=== PATIENT | female | born 1975 | race American Indian/Alaskan Native ===

== ENCOUNTER 2022-02-02 15:19 | Emergency (ER) | payer SELFPAY ==
--- NOTE | 2022-02-02 18:19 | XRay Report ---
CHEST 2 VIEWS INDICATION / CLINICAL INFORMATION: Shortness of breath for 2 days. Painful lump on right clavicle. COMPARISON: None available. FINDINGS: SUPPORT DEVICES: None. HEART / MEDIASTINUM: The heart size and pulmonary vasculature are normal. LUNGS / PLEURA: No significant pulmonary or pleural abnormality. No pneumothorax. ADDITIONAL FINDINGS: No osseous abnormality is seen. IMPRESSION: No acute findings. Signer Name: Juanpablo Das MD Signed: 02/02/2022 6:15 PM Workstation Name: [id number]
[2022-02-02 18:21] LABS: Basophils # (Auto) 0.1 K/mm3 (0.0-0.1); Basophils % (Auto) 1.2 % (0.0-1.8); Eosinophils # (Auto) 0.1 K/mm3 (0.0-0.4); Eosinophils % (Auto) 1.9 % (0.0-4.3); Lymphocytes # (Auto) 1.9 K/mm3 (1.2-5.4); Lymphocytes % (Auto) 27.9 % (13.4-35.0); Mean Corpuscular HGB Conc 32 % (30-34); Mean Corpuscular Volume 84 fl (79-97); Monocytes # (Auto) 0.5 K/mm3 (0.0-0.8); Monocytes % (Auto) 6.7 % (0.0-7.3); Platelet Count 214 K/mm3 (140-440); Red Blood Count 4.53 M/mm3 (3.65-5.03); Red Cell Distribution Width 18.2 % (13.2-15.2)
[2022-02-02 18:26] LABS: Alanine Aminotransferase 19 units/L (7-56); Albumin 3.9 g/dL (3.9-5); Blood Urea Nitrogen 14 mg/dL (7-17); Calcium 8.9 mg/dL (8.4-10.2); Hemolysis Index 8
[2022-02-02 18:31] LABS: BUN/Creatinine Ratio 20
[2022-02-02] MEDS ORDERED: dexAMETHasone 20 MG/5 ML VIAL IM ONE (21:14)
[2022-02-02] MEDS ORDERED: KETOROLAC 30 MG/1 ML INJ IM ONE (21:14)
--- NOTE | 2022-02-02 22:13 | XRay Report ---
RIGHT CLAVICLE 2 VIEWS INDICATION / CLINICAL INFORMATION: Pain and swelling along right clavicle. COMPARISON: None available. FINDINGS: BONES and JOINT(S): No acute fracture or subluxation. No significant arthritis. SOFT TISSUES: No significant abnormality. ADDITIONAL FINDINGS: None. IMPRESSION: 1. No acute findings. Signer Name: Pa Tmaayo MD Signed: 02/02/2022 10:09 PM Workstation Name: [id number]
--- NOTE | 2022-02-02 22:36 | Emergency Department Report ---
ED General Adult HPI - General Chief complaint: Dyspnea/Respdistress Stated complaint: UPPER NECK/CHEST PAIN Source: patient Mode of arrival: Ambulatory Limitations: No Limitations - History of Present Illness Initial comments: Patient is a 46-year-old -British female with no past medical history presents to the ED with complaint of acute onset persistent nontraumatic medial right clavicle pain and swelling at the sternoclavicular joint for the last 2 days, worse in the last 12 hours. Patient states the pain is worse with movement, palpation or deep inhalation. Patient denies dizziness, syncope, traumatic injury, heavy lifting, fall, neck pain, cough, sore throat, dysphagia or dysphonia, numbness and tingling or weakness of upper extremities bilaterally, fever and chills. MD Complaint: Medial right clavicle pain and swelling -: Sudden, days(s) (3) Location: chest (medial right clavicle pain) Radiation: non-radiation Severity scale (0 -10): 7 Quality: aching, sharp Consistency: constant Improves with: none Worsens with: none Associated Symptoms: denies other symptoms, chest pain (medial right clavicle pa in and swelling). denies: confusion, cough, diaphoresis, fever/chills, headaches, loss of appetite, malaise, nausea/vomiting, rash, seizure, shortness of breath, syncope, weakness, other Treatments Prior to Arrival: none - Related Data Previous Rx's Medication Instructions Recorded Last Taken Type Naproxen 500 mg PO Q12H PRN #30 tab 02/02/22 Unknown Rx predniSONE [Deltasone] 40 mg PO QDAY #10 tab 02/02/22 Unknown Rx Allergies Allergy/AdvReac Type Severity Reaction Status Date / Time No Known Allergies Allergy Unverified 02/02/22 17:22 ED Review of Systems ROS: Stated complaint: UPPER NECK/CHEST PAIN Other details as noted in HPI Constitutional: denies: chills, fever Eyes: denies: eye pain, eye discharge, vision change ENT: denies: ear pain, throat pain Respiratory: denies: cough, shortness of breath, wheezing Cardiovascular: denies: chest pain, palpitations Endocrine: no symptoms reported Gastrointestinal: denies: abdominal pain, nausea, vomiting, diarrhea Genitourinary: denies: urgency, dysuria, discharge Musculoskeletal: joint swelling (Medial right clavicle pain and swelling), arthralgia (Medial right clavicle pain with mild swelling). denies: back pain Skin: denies: rash, lesions Neurological: denies: headache, weakness, paresthesias Psychiatric: denies: anxiety, depression Hematological/Lymphatic: denies: easy bleeding, easy bruising ED Past Medical Hx - Past Medical History Previous Medical History?: No Additional medical history: neto syndrome - Surgical History Past Surgical History?: No - Social History Smoking Status: Never Smoker - Medications Home Medications: Home Medications Medication Instructions Recorded Confirmed Last Taken Type Naproxen 500 mg PO Q12H PRN #30 tab 02/02/22 Unknown Rx predniSONE [Deltasone] 40 mg PO QDAY #10 tab 02/02/22 Unknown Rx ED Physical Exam - General Limitations: No Limitations General appearance: alert, in no apparent distress - Head Head exam: Present: atraumatic, normocephalic, normal inspection - Eye Eye exam: Present: normal appearance, PERRL, EOMI Pupils: Present: normal accommodation - ENT ENT exam: Present: normal exam, normal orophraynx, mucous membranes moist, TM's normal bilaterally, normal external ear exam - Neck Neck exam: Present: normal inspection, full ROM. Absent: tenderness - Respiratory Respiratory exam: Present: normal lung sounds bilaterally, chest wall tenderness (Palpable reproducible medial right clavicle tenderness with mild swelling at the sternoclavicular joint). Absent: respiratory distress, wheezes, rales, rhonchi, accessory muscle use, decreased breath sounds, other - Cardiovascular Cardiovascular Exam: Present: regular rate, normal rhythm, normal heart sounds. Absent: systolic murmur, diastolic murmur, rubs, gallop - GI/Abdominal GI/Abdominal exam: Present: soft, normal bowel sounds. Absent: tenderness, guarding, rebound, hyperactive bowel sounds, hypoactive bowel sounds, organomegaly - Extremities Exam Extremities exam: Present: normal inspection, full ROM, normal capillary refill. Absent: tenderness - Back Exam Back exam: Present: normal inspection, full ROM. Absent: tenderness, CVA tenderness (R), CVA tenderness (L), muscle spasm - Neurological Exam Neurological exam: Present: alert, oriented X3, CN II-XII intact, normal gait, reflexes normal - Psychiatric Psychiatric exam: Present: normal affect, normal mood - Skin Skin exam: Present: warm, dry, intact, normal color. Absent: rash ED Course Vital Signs 02/02/22 17:17 Temperature 98.9 F Pulse Rate 87 Respiratory 18 Rate Blood Pressure 129/91 O2 Sat by Pulse 99 Oximetry ED Medical Decision Making - Lab Data Result diagrams: 02/02/22 17:44 02/02/22 17:44 - Radiology Data Radiology results: report reviewed, image reviewed [facility] [address] [place] [address] XRay Report Signed Patient: ERICA GUERRERO MR#: [id number] : 1975 Acct:[id number] Age/Sex: 46 / F ADM Date: 02/02/22 Loc: ED Attending Dr: Ordering Physician: ED MD ANEUDY Date of Service: 02/02/22 Procedure(s): XR chest routine 2V Accession Number(s): [id number] cc: ED ANEUDY, Fluoro Time In Minutes: CHEST 2 VIEWS INDICATION / CLINICAL INFORMATION: Shortness of breath for 2 days. Painful lump on right clavicle. COMPARISON: None available. FINDINGS: SUPPORT DEVICES: None. HEART / MEDIASTINUM: The heart size and pulmonary vasculature are normal. LUNGS / PLEURA: No significant pulmonary or pleural abnormality. No pneumothorax. ADDITIONAL FINDINGS: No osseous abnormality is seen. IMPRESSION: No acute findings. Signer Name: Juanpablo Das MD Signed: 02/02/2022 6:15 PM Workstation Name: [id number] Transcribed By: RT Dictated By: Juanpablo Das MD Electronically Authenticated By: Juanpablo Das MD Signed Date/Time: 02/02/221814 DD/ 13 TD/TT: [facility] [address] [place] [address] XRay Report Signed Patient: ERICA GUERRERO MR#: [id number] : 1975 Acct:[id number] Age/Sex: 46 / F ADM Date: 02/02/22 Loc: ED Attending Dr: Ordering Physician: BERNY FONSECA Date of Service: 02/02/22 Procedure(s): XR clavicle RT Accession Number(s): [id number] cc: BERNY FONSECA Fluoro Time In Minutes: RIGHT CLAVICLE 2 VIEWS INDICATION / CLINICAL INFORMATION: Pain and swelling along right clavicle. COMPARISON: None available. FINDINGS: BONES and JOINT(S): No acute fracture or subluxation. No significant arthritis. SOFT TISSUES: No significant abnormality. ADDITIONAL FINDINGS: None. IMPRESSION: 1. No acute findings. Signer Name: Pa Tamayo MD Signed: 02/02/2022 10:09 PM Workstation Name: [id number] Transcribed By: MN Dictated By: Pa Tamayo MD Electronically Authenticated By: Pa Tamayo MD Signed Date/Time: 02/02/222208 DD/ 08 TD/TT: - Medical Decision Making This is a 46-year-old -British female with no past medical history presents to the ED with complaint of acute onset persistent nontraumatic medial right clavicle pain and swelling at the sternoclavicular joint for the last 2 days, worse in the last 12 hours. Patient states the pain is worse with movement, palpation or deep inhalation. In the ED, patient is alert and oriented x3 and is not in any distress. Patient was treated for pain in the ED. The right clavicle x-ray showed no acute fractures or subluxations. The chest x-ray showed no acute cardiopulmonary abnormalities or pneumonitis. On reevaluation, patient's pain is well controlled medication. Patient symptoms are likely musculoskeletal. Patient was discharged home on pain medications and advised to follow-up with her primary care physician in 7 to 10 days for reevaluation return to the ED immediately if symptoms get worse. - Differential Diagnosis Clavicle fract; sternoclavicular tendinitis; osteoarthritis; muscle strain; Critical care attestation.: If time is entered above; I have spent that time in minutes in the direct care of this critically ill patient, excluding procedure time. ED Disposition Clinical Impression: Pain of right clavicle, Muscle strain of anterior chest wall Sternoclavicular (joint) (ligament) sprain Qualifiers: Encounter type: initial encounter Laterality: right Qualified Code(s): S43.61XA - Sprain of right sternoclavicular joint, initial encounter Disposition: HOME / SELF CARE / HOMELESS Is pt being admited?: No Does the pt Need Aspirin: No Condition: Stable Instructions: Muscle Strain, [id number] Additional Instructions: The right clavicle x-ray showed no acute fractures or subluxations. The chest x-ray showed no acute Cardiopulmonary abnormalities or pneumonitis. Your sympt oms are likely due to strain of ligaments on the sternoclavicular joint causing significant pain and swelling. Therefore take medications as needed for pain with food, drink plenty fluids and follow-up with your primary care physician in 7 to 10 days for reevaluation. Return to the ED immediately if symptoms get worse. Prescriptions: predniSONE [Deltasone] 40 mg PO QDAY #10 tab Naproxen 500 mg PO Q12H PRN #30 tab PRN Reason: Pain , Severe (7-10) Referrals: [facility] [Provider Group] - 7-10 days Forms: Work/School Release Form(ED) Time of Disposition: 22:44 Print Language: ROMANIAN
[2022-02-03 01:01] VITALS: BP 127/89
== END 2022-02-03 01:01 | disposition home or self-care (01) ==
LOC: ED 15:19
DX: S43.61XA Sprain of right sternoclavicular joint, initial encounter (principal); S29.011A Strain of muscle and tendon of front wall of thorax, initial encounter; Z79.899 Other long term (current) drug therapy; X58.XXXA Exposure to other specified factors, initial encounter; Y93.89 Activity, other specified; Y92.89 Other specified places as the place of occurrence of the external cause; Y99.8 Other external cause status
CPT/HCPCS: 36415; 71046; 73000; 80053; 84484; 85025; 93005; 96372; 99283; J1100; J1885